=== PATIENT | female | born 1955 ===

== ENCOUNTER 2019-07-01 04:14 | Emergency (ER) | payer OTHER ==
[~2019-07-01] VITALS: Ht 152.4 cm; Wt 65.3 kg
[2019-07-01] MEDS ORDERED: SYNTHROID75 MCG (04:18)
[2019-07-01] MEDS ORDERED: VITAMIN D3500 UNIT/5 (04:19)
[2019-07-01] MEDS ORDERED: CENTRUM COMPLE1 EACH (04:19)
[2019-07-01] MEDS ORDERED: SIMVASTATIN5 MG (04:19)
[2019-07-01] MEDS ORDERED: NEURONTIN300 MG (04:20)
[2019-07-01] MEDS ORDERED: KETO10TA2 PO (07:19)
[2019-07-01] MEDS ORDERED: ORPHENADRINE C100 MG PO (07:19)
== END 2019-07-01 07:47 ==
LOC: ER 04:14
DX: S10.83XA Contusion of other specified part of neck, initial encounter (principal); R42 Dizziness and giddiness; W18.09XA Striking against other object with subsequent fall, initial encounter; Y93.89 Activity, other specified; Y92.098 Other place in other non-institutional residence as the place of occurrence of the external cause; Y99.8 Other external cause status; M54.2 Cervicalgia